=== PATIENT | male | born 1940 | race Native Hawaiian/Other Pacific Islander ===

== ENCOUNTER 2017-09-02 09:27 | Outpatient (CLI) | payer OTHER | END 2017-09-02 19:04 | disposition home or self-care (01) | LOC: CT 09:27 | DX: I70.91 Generalized atherosclerosis (principal) | CPT/HCPCS: 36415; 82565; 84520; Q9963 ==

== ENCOUNTER 2017-09-04 09:20 | Outpatient (CLI) | payer OTHER | END 2017-09-04 21:18 | disposition home or self-care (01) | LOC: CT 09:20 | DX: I70.91 Generalized atherosclerosis (principal) | CPT/HCPCS: Q9963 ==

== ENCOUNTER 2017-09-23 08:40 | Outpatient (CLI) | payer OTHER | END 2017-09-23 23:38 | disposition home or self-care (01) | LOC: RAD 08:40 | DX: M79.672 Pain in left foot (principal) ==